=== PATIENT | male | born 1990 | race Caucasian/White ===

== ENCOUNTER 2020-09-19 13:08 | Emergency (ER) | payer SELFPAY ==
[~2020-09-19] VITALS: Ht 175.3 cm; Wt 86.2 kg
[2020-09-19] MEDS ORDERED: HYDROCODONE/APAP 5/325MG TABLET ONE (13:42)
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
[2020-09-19] MEDS ORDERED: HYDROCODONE/APAP 5/325MG TABLET PO ONE (14:00)
--- NOTE | 2020-09-19 14:49 | NUR ---
THE PATIENT C/O ABODMINAL PAIN 09/19. STATED THAT HE HAS HX OF MEDITERRANEAN ILLNESS AND THE PATIENT IS DUE TO THIS ILLNESS ATTACK WHICH HE GETS ABOUT EVERY [address] HOPE AWARE. ORDERED MORPHINE GIVEN PER DR HOPE ORDER.
[2020-09-19] MEDS ORDERED: ONDANSETRON HCL/PF 4 MG/2 ML VIAL ONE (14:50)
[2020-09-19] MEDS ORDERED: MORPHINE SULFATE INJ 2 MG/ML DISP.SYRIN ONE (14:50)
--- NOTE | 2020-09-19 14:50 | NUR ---
Patient does not wish to proceed with medical care recommended by Dr. Lenz. Patient given information related to possible complications, up to and including , which could occur as a result of leaving the hospital at this time. Patient verbalizes understanding of risks involved due to leaving against medical advice. Patient has signed AMA form.
[2020-09-19] MEDS ORDERED: MORPHINE SULFATE INJ 2 MG/ML DISP.SYRIN IM ONE (15:00)
[2020-09-19] MEDS ORDERED: ONDANSETRON 4 MG TAB.RAPDIS SL ONE (15:00)
[2020-09-19 15:05] VITALS: BP 137/89
== END 2020-09-19 14:50 | disposition left against medical advice (07) ==
LOC: ER 13:17
DX: M54.2 Cervicalgia (principal); R07.89 Other chest pain; R50.9 Fever, unspecified; F17.200 Nicotine dependence, unspecified, uncomplicated; V49.59XA Passenger injured in collision with other motor vehicles in traffic accident, initial encounter; Y93.89 Activity, other specified; Y92.413 State road as the place of occurrence of the external cause; Y99.8 Other external cause status
CPT/HCPCS: 96372; 99283; J2270; J2405